=== PATIENT | male | born 1990 | race Caucasian/White ===

== ENCOUNTER 2018-12-13 00:22 | Emergency (ER) | payer SELFPAY ==
[~2018-12-13] VITALS: Ht 175.3 cm; Wt 83.9 kg
[2018-12-13 00:22] VITALS: BP 145/102
--- NOTE | 2018-12-13 00:23 | NUR ---
PT TAKEN TO BED 1
--- NOTE | 2018-12-13 00:38 | NUR ---
28 YO M BIB C/O 1010 RIGHT TESTICLE PAIN X 1 DAY. PT STATES HE HAS HAD MILD, TOLERABLE RIGHT TESTICULAR PAIN OFF AND ON X 2 MONTHS. 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 TODAY PT REPORTS SWELLING AND UNBEARABLE PAIN. DENIES FEVER, PAIN/BURNING WITH URINATION. -- PT AWAKE, A/O X 4. APPEARS TO BE IN SEVERE PAIN. REQUIRES WC ASSISTANCE. FACIAL GRIMACING. ANSWERS QUESTIONS WITHOUT DIFFICULTY. BEHAVIOR APPROPRIATE. -- SWELLING, REDNESS NOTED TO RIGHT SIDE. -- PT ABLE TO URINATE WITHOUT DIFFICULTY. PMH-- VARICOCELE SURGERY TO RIGHT TESTICLE X 10 YEARS AGO, SEIZURES (LAST SEIZURE X 3 YEARS AGO) RX-- DENIES
--- NOTE | 2018-12-13 00:49 | NUR ---
DR. CARR EVALUATING AT BEDSIDE.
--- NOTE | 2018-12-13 00:59 | NUR ---
Ultrasound at bedside.
[2018-12-13] MEDS: KETOROLAC 30 MG/ML VIAL IVP ONE (01:06)
--- NOTE | 2018-12-13 01:06 | NUR ---
PT MEDICATED WITH 30 MG IVP TORADOL FOR 10 TESTICULAR PAIN. WILL REASSESS.
--- NOTE | 2018-12-13 01:27 | NUR ---
PT REPORTS NO PAIN RELIEF. PT STATES PAIN IS GETTING WORSE. PT IS CRYING WITH FACIAL GRIMACING. SEVERE PAIN NOTED. DR. CARR NOTIFIED; NEW ORDERS RECEIVED.
--- NOTE | 2018-12-13 01:38 | NUR ---
PT RECEIVED 4 MG IVP MORPHINE FOR SEVERE TESTICULAR PAIN. WILL REASSESS.
[2018-12-13] MEDS: MORPHINE SULFATE 4 MG/ML SYR IVP ONE ×2 (01:39→02:21)
--- NOTE | 2018-12-13 02:10 | NUR ---
PT REPORTS SOME RELIEF INITIALLY AFTER FIRST MORPHINE DOSE BUT STATES IT CAME BACK AND IS STILL 11/15. DR. CARR MADE AWARE. NEW ORDERS RECEIVED.
--- NOTE | 2018-12-13 02:20 | NUR ---
MEDICATED PT WITH 4 MG IVP MORPHINE. WILL REASSESS.
--- NOTE | 2018-12-13 02:50 | NUR ---
PT REPORTS RELIEF IN PAIN; 4/10. PT STATES PAIN IS "VERY LITTLE NOW". PT RESTING QUIETLY WITH MOM AT BEDSIDE.
[2018-12-13 03:04] VITALS: BP 114/78
--- NOTE | 2018-12-13 03:04 | NUR ---
Patient discharged with v/s stable. Written and verbal after care instructions given and explained. Patient alert, oriented and verbalized understanding of instructions. Ambulatory with steady gait. All questions addressed prior to discharge. ID band removed. Patient advised to follow up with PMD. Rx of Motrin 800 mg, Cipro, [place] given. Patient educated on indication of medication including possible reaction and side effects. Opportunity to ask questions provided and answered.
== END 2018-12-13 03:04 | disposition home or self-care (01) ==
LOC: MED 00:22
DX: N50.811 Right testicular pain (principal); N43.3 Hydrocele, unspecified
CPT/HCPCS: 76870; 96374; 96375; 96376; 99284; J1885; J2270; Q0092